=== PATIENT | male | born 1970 | race Caucasian/White ===

== ENCOUNTER → 2019-11-30 12:43 | Outpatient (CLI) | payer BC, SELFPAY ==
--- NOTE | 2019-11-30 12:50 | ECHOD_ITS ---
Reason For Study: +FAM Hx Ao Dissection Procedure This was a 2D Doppler, Color Flow transthoracic echocardiogram. Exam performed in department. Left Ventricle Normal LV size. The estimated ejection fraction is 60 %. No evidence for diastolic dysfunction. No regional wall motion abnormalities noted. Right Ventricle Normal RV size. Normal systolic function. Atria Normal left atrium. Normal right atrium. No doppler evidence for ASD. Mitral Valve There is no mitral valve stenosis. No mitral valve insufficiency. Tricuspid Valve There is no tricuspid stenosis. Trivial tricuspid valve insufficiency. Unable to estimate RV systolic pressure due to insufficient tricuspid regurgitant envelope. Aortic Valve Trisinus/trileaflet aortic valve. There is no aortic stenosis. Mild (1+) aortic valve insufficiency. Pulmonic Valve There is no pulmonic valvular stenosis. No pulmonic valve insufficiency. Great Vessels Aortic root diameter is at upper limits of normal. Pericardium/Pleural No pericardial effusion. MMode/2D Measurements & Calculations LVIDd: 4.6 cm IVSd: 0.85 cm Ao root diam: 3.9 cm LVIDs: 3.1 cm LVPWd: 0.92 cm RVDd: 3.9 cm FS: 32.1 % LAV(MOD-bp): 65.8 ml LA A4 area: 21.7 cm2 LA dimension(2D): 3.9 cm LAV(MOD-bp) Indexed: 34.6 ml/m2 LAV(MOD-sp2): 60.5 ml LAV(MOD-sp4): 67.8 ml RA A4 area: 18.8 cm2 Time Measurements MV dec time: 0.23 sec Doppler Measurements & Calculations MV E max celso: 91.3 cm/sec Lat Peak E' Celso: 14.7 cm/sec Med Peak E' Celso: 13.5 cm/sec MV A max celso: 48.9 cm/sec E/E' lat: 6.2 E/E' med: 6.8 MV E/A: 1.9 Ao V2 max: 118.9 cm/sec AI max celso: 524.5 cm/sec LV V1 max: 113.1 cm/sec Ao max P.7 mmHg AI max P.0 mmHg LV V1 max P.1 mmHg AI dec slope: 212.8 cm/sec2 AI P1/2t: 721.8 msec PA V2 max: 90.3 cm/sec TR max celso: 220.4 cm/sec TR max P.4 mmHg Interpretation Summary The estimated ejection fraction is 60 %. No evidence for diastolic dysfunction. Mild (1+) aortic valve insufficiency. Aortic root diameter is at upper limits of normal Ordering Physician: DEVON PORTILLO Referring Physician: DEVON PORTILLO Performed By: Janet Walters, UDAYCS, RVT
--- NOTE | 2019-11-30 13:40 | CT_ITS ---
STUDY: CTA CHEST REASON FOR EXAM: Male, 49 years old. Abnormal EKG, family hx aortic dissection RADIATION DOSAGE (If Supplied By Facility): CTDIvol = ( 15.64 ) mGy, DLP = ( 282.18 ) mGycm TECHNIQUE: The examination was performed with the intravenous administration of 100 CC ISOVUE 370. Post-processing of the angiographic images was performed, with multiplanar reformation and 3D reconstruction. Individualized dose optimization techniques were used for this CT. COMPARISON: None. FINDINGS: Normal enhancement of the main pulmonary artery and right and left pulmonary arteries. Normal enhancement of the bilateral peripheral pulmonary arteries. There is no demonstrated pulmonary embolism. Normal thoracic aorta and visualized great vessels. There is no demonstrated aortic dissection. Normal heart and pericardium. Normal mediastinum. Normal hilar regions. Normal visualized trachea and bronchi. The lungs are well expanded. Normal pulmonary parenchyma. Normal pleura. Normal chest wall structures. Normal osseous structures. Normal visualized upper abdomen. CT/CTA Chest W/WO Contrast IMPRESSION: Normal CTA chest examination, without a demonstrated pulmonary embolism or arterial dissection. Electronically Signed: Jackson Duke, at 15:06 EDT , Service support ,
== END ==
DX: R94.31 Abnormal electrocardiogram [ECG] [EKG] (principal); Z82.49 Family history of ischemic heart disease and other diseases of the circulatory system
CPT/HCPCS: 71275; 93306; Q9967